=== PATIENT | female | born 1975 | race Two or more races ===

== ENCOUNTER 2025-09-21 13:05 | Emergency (ER) | payer MEDICAID, OTHER ==
[~2025-09-21] VITALS: Ht 160 cm; Wt 54.4 kg
[2025-09-21 13:14] VITALS: TEMP 98.1
[2025-09-21 13:46] LABS: APPEARANCE,URINE CLEAR (CLEAR); BLOOD, URINE NEGATIVE Ery/uL (NEGATIVE); LEUKOCYTE ESTERASE ,URINE NEGATIVE (NEGATIVE); NITRITE, URINE NEGATIVE (NEGATIVE); PREGNANCY TEST URINE QUAL NEGATIVE (NEGATIVE); UGLUCOSE NEGATIVE (NEGATIVE)
[2025-09-21] MEDS: IV NS 0.9% 1,000 ML BAG IV ONE (13:50)
[2025-09-21 13:54] LABS: ABG BASE EXCESS -0.9 mmol/L (-2.0-3.0); ABG OXYGEN SATURATION 95.7 % (94.0-98.0); ABG PCO2 35.8 mmHg (32.0-45.0); ABG PH 7.426 (7.350-7.450); ABG PO2 83.3 mmHg (83.0-108.0); ABG TOTAL HEMOGLOBIN 13.4 G/dL (12.0-16.0); FRACTIONATED INSPIRED OXYGEN 21.0 %; SITE, ABG RIGHT RADIAL
[2025-09-21 13:58] LABS: PLATELET COUNT (AUTO) 403 K/uL (150-450); RED BLOOD CELL COUNT(AUTO) 4.31 MIL/uL (4.0-5.2); RED CELL DISTRIBUTION WIDTH 13.0 % (11.5-15.0); WHITE BLOOD COUNT (AUTO) 6.5 K/uL (4.3-11.0)
[2025-09-21 14:08] LABS: CALCIUM, SERUM 8.8 mg/dL (8.5-10.1); CREATININE 0.7 mg/dL (0.6-1.3); SODIUM SERUM 141.0 mmol/L (136-145); UREA NITROGEN, BLOOD 18.0 mg/dL (7-18)
[2025-09-21 14:21] LABS: MONOTEST POSITIVE (NEGATIVE)
[2025-09-21] MEDS ORDERED: ACET-2030 PO (15:03)
[2025-09-21] MEDS ORDERED: IBUP-1490 PO (15:03)
[2025-09-21 15:23] VITALS: BP 117/80; O2SAT 97
== END 2025-09-21 15:23 | disposition home or self-care (01) ==
LOC: ER 13:14
DX: B27.90 Infectious mononucleosis, unspecified without complication (principal); Z88.1 Allergy status to other antibiotic agents
CPT/HCPCS: 99285; 96360; 71045; 93005; 85025; 80048; 86308; 84703; 81003; 36415; 84443; J7030

== ENCOUNTER 2025-09-25 14:03 | Emergency (ER) | payer MEDICAID ==
[~2025-09-25] VITALS: Ht 160 cm; Wt 54.4 kg
[~2025-09-25 14:03] MED LIST: ACET-2030 PO; IBUP-1490 PO
[2025-09-25 14:05] VITALS: BP 125/79; TEMP 98.3
[2025-09-25 14:25] VITALS: O2SAT 98
== END 2025-09-25 14:26 | disposition home or self-care (01) ==
LOC: ER 14:16
DX: B27.90 Infectious mononucleosis, unspecified without complication (principal); Z88.1 Allergy status to other antibiotic agents

== ENCOUNTER 2025-09-28 18:12 | Emergency (ER) | payer MEDICAID ==
[~2025-09-28] VITALS: Ht 157.5 cm; Wt 54.4 kg
[2025-09-28] MEDS ORDERED: ONDANSETRON 4 MG TAB.RAPDIS ONE (19:37)
[2025-09-28] MEDS: ONDANSETRON 4 MG TAB.RAPDIS SL ONE (19:49)
[2025-09-28] MEDS ORDERED: ONDA4TAB5 PO (19:51)
[2025-09-28 20:01] LABS: PLATELET COUNT (AUTO) 463 K/uL (150-450); RED BLOOD CELL COUNT(AUTO) 4.70 MIL/uL (4.0-5.2); RED CELL DISTRIBUTION WIDTH 12.7 % (11.5-15.0); WHITE BLOOD COUNT (AUTO) 10.5 K/uL (4.3-11.0)
[2025-09-28 20:08] LABS: CALCIUM, SERUM 9.0 mg/dL (8.5-10.1); CREATININE 0.8 mg/dL (0.6-1.3); SODIUM SERUM 137.0 mmol/L (136-145); UREA NITROGEN, BLOOD 15.0 mg/dL (7-18)
[2025-09-28 20:20] LABS: ASPARTATE AMINOTRANSFERASE 20.0 U/L (15-37); TOTAL PROTEIN, SERUM 8.6 g/dL (6.4-8.2)
[2025-09-28] MEDS ORDERED: METO-295 PO (20:22)
[2025-09-28 20:38] VITALS: BP 110/77; TEMP 97.9; O2SAT 96
== END 2025-09-28 20:40 | disposition home or self-care (01) ==
LOC: ER 18:14
DX: A05.9 Bacterial foodborne intoxication, unspecified (principal); Z88.1 Allergy status to other antibiotic agents
CPT/HCPCS: 99283; 85025; 80048; 83690; 80076; 36415; Q0163; Q0162